=== PATIENT | female | born 1990 | race Caucasian/White ===

== ENCOUNTER 2016-12-23 12:28 | Observation (INO) | payer BC ==
[2016-12-23] MEDS ORDERED: LR 1,000 ML IV PRN (12:35)
[2016-12-23] MEDS ORDERED: IBUPROFEN 600 MG TAB PO PRN (12:35)
[2016-12-23] MEDS ORDERED: TERBUTALINE SULFATE 1 MG/ML VIAL IV PRN (12:35)
[2016-12-23] MEDS ORDERED: OXYTOCIN/RINGERS LACTATE 1,000 ML IV PRN (12:35)
[2016-12-23] MEDS ORDERED: LIDOCAINE 1% 30 ML SDV ONE (12:44)
[2016-12-23] MEDS ORDERED: AMMONIA AROMATIC 1 EACH AMP IH ONE (12:44)
[2016-12-23] MEDS ORDERED: TERBUTALINE SULFATE 1 MG/ML VIAL ONE (12:45)
[2016-12-23] MEDS ORDERED: MISOPROSTOL 200 MCG TAB ONE (12:45)
[2016-12-23] MEDS ORDERED: OXYTOCIN 10 UNIT/ML VIAL ONE (12:45)
--- NOTE | 2016-12-23 14:43 | SOAPPROG ---
SOAP Progress Note Assessment/Plan: Assessment: at 36w5d No e/o ROM (neg amnisure, neg pool/fern) MILAGRO normal at 13.3 cm status reassuring, reactive NST Not in labor Plan: Discharge home Precautions given RTC as scheduled with Dr. RAMIREZ 12/23/16 14:39 Subjective: Pt is a with h/o two prior at term who present for r/o ROM. She was at [employer] when she felt a trickle of fluid, and then felt a larger gush after that. No further leaking. Baby is active. Rare contraction, not painful. No VB. c/b shoulder dystocia of 2nd delivery, baby with no residual deficits. Objective: FHR baseline 135-140, mod milly, + accel, no decel [place]: q2-5 minutes BP 128/75 P 82 Gen: NAD Resp: unlabored CV: reg rate Abd: gravid, soft, nontender Ext: no edema SSE: cervix long/closed. Neg pooling including with valsalva Micro: Neg fern SVE: fingertip/soft/30%/-3 Bedside transabdominal US: Vertex presentation MILAGRO = 13.3 cm ICD10 Worksheet Patient Problems: Problems Problem Status Onset 36 to 37 weeks gestation of Acute - ICD10 Problem Qualifiers (1) 36 to 37 weeks gestation of
== END 2016-12-23 14:44 | disposition home or self-care (01) ==
LOC: FLD 12:28 → INTOOBSV 12:28
PROVIDERS: ADMIT Obstetrics & Gynecology; ATTEND Obstetrics & Gynecology
DX: O99.89 Other specified diseases and conditions complicating pregnancy, childbirth and the puerperium (principal); Z3A.36 36 weeks gestation of pregnancy
CPT/HCPCS: 59025; 76818; G0378; J2590; J3105

== ENCOUNTER 2017-01-10 06:26 | Inpatient (IN) | payer BC ==
[2017-01-10] MEDS ORDERED: LIDOCAINE 1% 2 ML INJ ONE (06:58)
[2017-01-10] MEDS ORDERED: OXYTOCIN/RINGERS LACTATE 1,000 ML IV PRN (07:00)
[2017-01-10] MEDS ORDERED: TERBUTALINE SULFATE 1 MG/ML VIAL IV PRN (07:00)
[2017-01-10] MEDS ORDERED: EPSOM SALT 454 GM TP PRN (07:00)
[2017-01-10] MEDS ORDERED: OLIVE OIL 118 ML BTL MISC PRN (07:00)
[2017-01-10] MEDS ORDERED: LIDOCAINE 1% 30 ML SDV SC PRN (07:00)
[2017-01-10] MEDS ORDERED: OLIVE OIL 118 ML BTL ONE (07:05)
[2017-01-10] MEDS ORDERED: AMMONIA AROMATIC 1 EACH AMP IH ONE (07:05)
[2017-01-10] MEDS ORDERED: LIDOCAINE 1% 30 ML SDV ONE (07:05)
[2017-01-10] MEDS ORDERED: TERBUTALINE SULFATE 1 MG/ML VIAL ONE (07:05)
[2017-01-10] MEDS ORDERED: MISOPROSTOL 200 MCG TAB ONE (07:06)
[2017-01-10] MEDS ORDERED: LR 500 ML IV PRN (07:35)
[2017-01-10 07:44] LABS: % IMMATURE GRANULYOCYTES 1.7 % (0.0-1.1); ABSOLUTE IMMATURE GRANULOCYTES 0.17 10^3/uL (0.00-0.10); ADD DIFF? NO; ADD MORPH? NO; ADD SCAN? NO; ATYPICAL LYMPHOCYTE FLAG 0 (0-99); FRAGMENT RBC FLAG 0 (0-99); HEMATOCRIT 36.3 % (38.0-47.0); HEMOGLOBIN 12.8 g/dL (12.6-16.3); LEFT SHIFT FLG 10 (0-99); LIPEMIA HEMOLYSIS FLAG 90 (0-99); MEAN CELL HEMOGLOBIN 31.1 pg (27.9-34.1); MEAN CELL HEMOGLOBIN CONCENTR. 35.3 g/dL (32.4-36.7); MEAN CELL VOLUME 88.1 fL (81.5-99.8); MEAN PLATELET VOLUME 10.2 fL (8.7-11.7); PLATELET CLUMPS FLAG 0 (0-99); PLATELET COUNT 195 10^3/uL (150-400); RED BLOOD CELL COUNT 4.12 10^6/uL (4.18-5.33); RED CELL DISTRIBUTION WIDTH 11.9 % (11.5-15.2)
[2017-01-10] MEDS: LR 1,000 ML IV PRN ×2 (07:49→10:15)
[2017-01-10] MEDS ORDERED: OXYTOCIN/RINGERS LACTATE 500 ML IV SCH ×2 (08:00)
--- NOTE | 2017-01-10 08:26 | OBPROG ---
OBG Progress Note Assessment/Plan: Assessment: 26 yo female, @ 39 2/7, IOL for history of shoulder dystocia Plan: 01/10/17 08:25 FWB reassuring. GBS neg. Epidural as desired. Subjective: 26 yo female, @ 39 2/7, IOL for history of shoulder dystocia Objective: 01/10/17 07:24 vss - SVE Dilation (cm): 3 Effacement (%): Less than 50 Station: -2 Current Contraction Pattern: Regular FHR (bpm): 140 FHR Pattern Variability: Moderate FHR Category: 2 Membranes: AROM Amniotic Fluid Color: Clear ICD10 Worksheet Patient Problems: Problems Problem Status Onset History of shoulder dystocia in prior Acute 36 to 37 weeks gestation of Acute
[2017-01-10] MEDS ORDERED: PHENYLEPHRINE HCL 100 MCG/ML SYR ONE (10:03)
[2017-01-10] MEDS ORDERED: BUPIVACAINE 0.25% 30 ML SDV ONE (10:03)
[2017-01-10] MEDS ORDERED: fentaNYL 2MCG/ML/BUP 0.1% RTU 100 ML BAG EP ONE (10:03)
[2017-01-10] MEDS ORDERED: fentaNYL 100 MCG/2 ML INJ ONE (10:04)
[2017-01-10] MEDS ORDERED: ONDANSETRON 4 MG/2 ML VIAL IVP PRN (11:20)
[2017-01-10] MEDS ORDERED: PHENYLEPHRINE HCL 100 MCG/ML SYR IVP PRN (11:20)
--- NOTE | 2017-01-10 11:25 | POSTANESTH ---
Post Anesthetic Evaluation Cardiovascular Status: Normal, Stable Respiratory Status: Normal, Stable, Similar to Pre-op Cond. Level of Consciousness/Mental Status: Can Participate in Eval, Alert and Oriented Pain Control: Adequate, Prn Tx Ordered Nausea/Vomiting Control: Adequate, Prn Tx Ordered Complications Possibly Related to Anesthesia: None Noted (Tolerated CSE well, stable, comfortable.)
--- NOTE | 2017-01-10 11:28 | PREANESOB ---
Obstetric Pre-Anesthesia Info - General Info Proposed Procedure: Labor and delivery with pitocin. : 3 Para: 2 WBD: 39 - Info Status: Full Term Monitors: External FHR Baseline (bpm): 130 FHR Pattern: Reassuring - Labor Status Cervical Dilation per last OB SVE: 3 Station per last OB SVE: -2 Amniotic Fluid Color: Clear Pitocin: In Use Indications for Labor Analgesia: Induction of Labor, Pain Control Labor Epidural: Proposed Anesthesia ROS: Prior labor epidural x 2. Allergies/Adverse Reactions: Allergy/AdvReac Type Severity Reaction Status Date / Time No Known Allergies Allergy Unverified 12/23/16 12:35 Visit Medications: Generic Name Dose Route Start Last Admin Trade Name Freq PRN Reason Stop Dose Admin Diphenhydramine HCl 25 - 50 mg 01/10/17 11:20 Benadryl Injection IVP 07/09/17 11:19 Q6HRS PRN Itching Lactated Ringer's 1,000 mls @ 0 mls/hr 01/10/17 07:00 01/10/17 07:49 Lr IV 07/09/17 06:59 1,000 mls PRN PRN Administration SEE PROTOCOL CONDITIONS Protocol Per Protocol Oxytocin/Lactated Ringer's 1,000 mls @ 150 mls/hr 01/10/17 07:00 Pitocin 20 Units/Lr (Premix) IV PRN PRN Post- bleeding Lactated Ringer's 500 mls @ 500 mls/hr 01/10/17 07:35 Lr IV PRN PRN Maternal Hypotension Oxytocin/Lactated Ringer's 500 mls @ 0 mls/hr 01/10/17 08:00 01/10/17 07:49 Pitocin 30 Units/Lr (Premix) IV 07/09/17 07:59 500 mls CONT LUIZA Administration Protocol Per Protocol Fentanyl/Bupivacaine HCl 100 mls @ 0 mls/hr 01/10/17 11:30 Fentanyl/Bupivacaine/Ns 2 Mcg/Ml 0.1% (Premix EP 01/20/17 11:29 CONT LUIZA Protocol As Directed Lactated Ringer's 500 mls @ 0 mls/hr 01/10/17 11:30 Lr IV 07/09/17 11:29 CONT LUIZA As Directed Ibuprofen 600 mg 01/10/17 07:00 Motrin PO 07/09/17 06:59 Q6HRS PRN post , inflammation Lidocaine HCl 30 ml 01/10/17 07:00 Lidocaine Hcl 1% SC 07/09/17 06:59 ONCE PRN Episiotomy Magnesium Sulfate 454 gm 01/10/17 07:00 Epsom Salt TP 07/09/17 06:59 PRN PRN perineal discomfort [place] Oil 118 ml 01/10/17 07:00 Sweet Oil MISC 07/09/17 06:59 ONCE PRN preneal massage Ondansetron HCl 4 mg 01/10/17 11:20 Zofran IVP 07/09/17 11:19 Q4HRS PRN Nausea/Vomiting, Can't Take PO Phenylephrine HCl 100 mcg 01/10/17 11:20 David-Synephrine IVP 07/09/17 11:19 .Q2M PRN Hypotension Terbutaline Sulfate 0.25 mg 01/10/17 07:00 Brethine IV 07/09/17 06:59 ONCE PRN Tachysystole Discontinued Medications Generic Name Dose Route Start Last Admin Trade Name Freq PRN Reason Stop Dose Admin Ammonia (Aromatic Spirit) Confirm 01/10/17 07:05 Ammonia Aromatic Administered 01/10/17 07:06 Dose 1 each IH .STK-MED ONE Bupivacaine HCl Confirm 01/10/17 10:03 Sensorcaine 0.25% Sdv Administered 01/10/17 10:04 Dose 30 ml .ROUTE .STK-MED ONE Ephedrine Sulfate Confirm 01/10/17 07:05 Ephedrine Sulfate Administered 01/10/17 07:06 Dose 50 mg .ROUTE .STK-MED ONE Fentanyl Confirm 01/10/17 10:04 Sublimaze Administered 01/10/17 10:05 Dose 100 mcg .ROUTE .STK-MED ONE Fentanyl/Bupivacaine HCl Confirm 01/10/17 10:03 Fentanyl/Bupivacaine/Ns 2 Mcg/Ml 0.1% (Premix Administered 01/10/17 10:04 Dose 100 ml EP .STK-MED ONE Oxytocin/Lactated Ringer's 500 mls @ 0 mls/hr 01/10/17 08:00 Pitocin 30 Units/Lr (Premix) IV 07/09/17 07:59 CONT LUIZA Per Protocol Lidocaine HCl Confirm 01/10/17 06:58 Lidocaine Hcl 1% Administered 01/10/17 06:59 Dose 2 ml .ROUTE .STK-MED ONE Lidocaine HCl Confirm 01/10/17 07:05 Lidocaine Hcl 1% Administered 01/10/17 07:06 Dose 30 ml .ROUTE .STK-MED ONE Misoprostol Confirm 01/10/17 07:06 Cytotec Administered 01/10/17 07:07 Dose 800 mcg .ROUTE .STK-MED ONE [place] Oil Confirm 01/10/17 07:05 Sweet Oil Administered 01/10/17 07:06 Dose 118 ml .ROUTE .STK-MED ONE Phenylephrine HCl Confirm 01/10/17 10:03 David-Synephrine Administered 01/10/17 10:04 Dose 1,000 mcg .ROUTE .STK-MED ONE Terbutaline Sulfate Confirm 01/10/17 07:05 Brethine Administered 01/10/17 07:06 Dose 1 mg .ROUTE .STK-MED ONE - Anesthesia History Response to Local Anesthetics: Normal Anesthesia & Operative History: No Prior Problems - Social History Substance Use/Abuse: Denies - Focused Exam Blood Pressure: 111/67 Heart Rate: 67 Height/Weight (Nursing): Height 162.56 cm Weight 72.575 kg Physical Exam: Within normal limits. ASA Status: II Labs: 01/10/17 07:24 Patient ABO/Rh O POSITIVE 01/10/17 07:24 - Plan Anesthetic Plan: CSE Consent Signed and on Chart: Yes Patient/Guardian Understands and Agrees to Plan: Yes
[2017-01-10] MEDS ORDERED: LR 500 ML IV SCH (11:30)
[2017-01-10] MEDS ORDERED: fentaNYL 2MCG/ML/BUP 0.1% RTU 100 ML EP SCH (11:30)
[2017-01-10] MEDS ORDERED: DOCUSATE SODIUM 100 MG CAP PO PRN (11:54)
[2017-01-10] MEDS ORDERED: SIMETHICONE 80 MG TAB CHEW PO PRN (11:54)
[2017-01-10] MEDS ORDERED: HYDROCORTISONE 0.5% CREAM TP PRN (11:54)
--- NOTE | 2017-01-10 11:54 | OBPROC ---
- Labor and Delivery Onset of Contractions Date: 01/10/17 Onset of Contractions Time: 08:00 Onset of Contractions Type: Induced Rupture of Membranes Date: 01/10/17 Rupture of Membranes Time: 08:30 Rupture of Membranes Type: Artificial Amniotic Fluid Color: Clear Dilation Complete Time: 11:30 Delivery Type: Spontaneous Placenta Delivery Date: 01/10/17 Episiotomy/Laceration: 2nd Degree Repair: 3-0, Vicryl EBL: 200 ml Complications: None - Medications Labor Augmentation/Induction Meds Used: Pitocin Labor Augmentation/Induction Indication: Other (Specify) (history of shoulder dystocia) Anesthesia: Epidural - Info A Delivery Date: 01/10/17 Delivery Time: 11:38 Sex of : Male Score (1 Min): 9 Score (5 Min): 9
[2017-01-10] MEDS: IBUPROFEN 600 MG TAB PO PRN ×2 (12:37→18:21)
[2017-01-10 18:24] VITALS: RESP 16
[2017-01-10 21:14] VITALS: O2SAT 97
[2017-01-11] MEDS: IBUPROFEN 600 MG TAB PO PRN ×3 (00:13→13:11)
[2017-01-11] MEDS: HYDROCODONE/APAP 5/325 TAB PO PRN ×2 (07:06→13:12)
--- NOTE | 2017-01-11 08:16 | OBGCSDC ---
General Delivery Information - General Info : 3 Para: 3 Delivery Date: 01/10/17 Delivery Time: 11:38 Delivery Physician/CNM: Camille Clemens Admission Date: 01/09/17 Labs: Patient ABO/Rh O POSITIVE 01/10/17 07:24 Hct 36.3 % (38.0-47.0) L 01/10/17 07:24 - Info Infant A Sex of Infant: Male Score (1 Min): 9 Score (5 Min): 9 Vaginal - Diagnosis Labor: Induced Rupture of Membranes Type: Artificial Amniotic Fluid Color: Clear Laceration: 2nd Degree Repair: 3-0, Vicryl Complications: None - Operations/Procedures Delivery Type: Spontaneous Anesthesia: Epidural - Delivery EBL: 200 ml Anesthesia: Epidural Discharge Information - Discharge Information Discharge Medications: Ibuprofen, Vitamins, Vicodin Condition: Good Instruction/Follow Up: Six Weeks Discharge Physician/CNM: Cristy Farmer Discharge Date: 01/11/17 Dictated: No
[2017-01-11 09:17] VITALS: BP 109/57; PULSE 72; TEMP 98.2
== END 2017-01-11 17:15 | disposition home or self-care (01) | DRG 775 ==
LOC: FLD 06:26 → FOB 15:15
PROVIDERS: ADMIT Obstetrics & Gynecology; ATTEND Obstetrics & Gynecology
PROC: 0KQM0ZZ Repair Perineum Muscle, Open Approach (ICD-10-PCS; principal; 2017-01-10)
PROC: 10E0XZZ Delivery of Products of Conception, External Approach (ICD-10-PCS; principal; 2017-01-10)
PROC: 10907ZC Drainage of Amniotic Fluid, Therapeutic from Products of Conception, Via Natural or Artificial Opening (ICD-10-PCS; principal; 2017-01-10)
PROC: 3E033VJ Introduction of Other Hormone into Peripheral Vein, Percutaneous Approach (ICD-10-PCS; principal; 2017-01-10)
DX: O70.1 Second degree perineal laceration during delivery (principal); Z3A.39 39 weeks gestation of pregnancy; Z37.0 Single live birth
CPT/HCPCS: J2370; J2590; J3010; J3105